=== PATIENT | male | born 1955 | race Caucasian/White ===

== ENCOUNTER → 2018-07-23 | Outpatient (CLI) | payer OTHER ==
[2018-07-23] VITALS (8 sets, daily range): BP systolic 130–147; BP diastolic 57–82
[~2018-07-23] VITALS: Ht 180.3 cm; Wt 99.8 kg
[~2018-07-23] MED LIST: ALLOPURINOL 30300 M2 PO; ASPIRIN325 PO; CENTRUM SILVER1 EAC2 PO; COLACE100 MG PO; FISH OIL 1,001000 M2 PO; FOLIC ACID1 MG PO; OXYCODONE HCL 55 MG PO; VITAMIN B-12500 MCG PO; VITAMIN D1000 UNI1 PO; XARELTO10 MG PO
[2018-07-23 10:11] LABS: HEMATOCRIT 39.3 % (42.0-52.0); HEMOGLOBIN 13.4 gm/dL (14.0-18.0); MCH 35.3 pg (26.0-34.0); MCHC 34.2 g/dL (28.0-37.0); MCV 103.1 fL (80.0-100.0); MPV 6.2 fl. (7.2-11.1); NUCLEATED RBCS 0 /100WBC; PLATELET COUNT* 123 thou/uL (150-400); RBC 3.81 mil/uL (4.50-6.00); RDW-CV 15.2 % (10.5-14.5)
[2018-07-23 10:22] LABS: CALCIUM 8.3 mg/dL (8.5-10.1); POTASSIUM 4.1 mmol/L (3.5-5.1)
[2018-07-23 10:24] LABS: WBC 1.6 thou/uL (4.0-11.0)
[2018-07-23 10:26] LABS: APTT 26.4 Seconds (25.0-31.3); INR 1.1; PROTIME 10.6 Seconds (9.20-11.50)
[2018-07-23 10:27] LABS: ALBUMIN 3.8 g/dL (3.4-5.0); TOTAL BILIRUBIN 0.8 mg/dL (<0.1-1.0)
[2018-07-23 10:47] LABS: ABSOLUTE LYMPHOCYTES 0.5 thou/uL (0.8-5.3); ABSOLUTE MONOCYTES 0.1 thou/uL (0.0-1.2); PLATELET ESTIMATE DECREASED
[2018-07-23 10:48] LABS: ANISOCYTOSIS 1+; POIKILOCYTOSIS 1+
--- NOTE | 2018-08-16 14:07 | PATH ---
[address] [place] [address] PATHOLOGY RPT PROCEDURE Name: DENI ANTONY Daljit [facility] [id number] Admission: 07/23/18 Date of : 51 Discharge: Report #: [id number] Path Case #: [id number] [facility] Accession Number: [id number] . 01 Material submitted: . PART A: BONE MARROW BIOPSY PART B: BONE MARROW CLOT PART C: BONE MARROW ASPIRATE SLIDES PART D: PERIPHERAL SMEARS . 01 Clinician provided ICD-10: 288.50 . 01 Clinical history: . 62 year old man with leukopenia, thrombocytopenia and a past medical history of hairy cell leukemia. . 02 Diagnosis: Bone marrow aspirate, biopsy, cell clot and peripheral blood: - Peripheral blood with moderate leukopenia and mild thrombocytopenia. - MILDLY HYPERCELLULAR BONE MARROW WITH TRILINEAGE HEMATOPOIESIS, ERYTHROID HYPERPLASIA AND INVOLVEMENT BY HAIRY CELL LEUKEMIA, RESIDUAL/RECURRENT (APPROXIMATELY 50-60% INVOLVEMENT BY IMMUNOHISTOCHEMICAL STAINING). - See comment. LBQ/07/26/2018 . 02 Comment: Overall, the bone marrow is mildly hypercellular for the patient's age with trilineage hematopoiesis, erythroid hyperplasia and involvement by the patient's previously diagnosed hairy cell leukemia ([id number]). There is approximately 50-60% involvement by immunohistochemical staining. Correlation with clinical history, additional laboratory data and cytogenetics is recommended. (CLW/db; 07/25/2018) . 02 Electronically signed: . Lexie Barlow MD, Pathologist NPI- [id number] . 01 Gross description: . A. Received in formalin labeled "Deni Antony, core," are 2 needle cores of kendrick bone measuring 0.4 and 0.6 cm in length and measuring 0.2 cm each in diameter. The specimen is submitted entirely in cassette A1, following decalcification. . B. Received in formalin labeled "Deni Antony, clot," is an aggregate of dark kendrick blood clot measuring 2.5 x 2.0 x 0.3 [place] [address] PATHOLOGY RPT PROCEDURE Name: DENI ANTONY [facility] [id number] Admission: 07/23/18 Date of : 51 Discharge: Report #: [id number] Path Case #: [id number] dimensions. The specimen is filtered and entirely submitted in cassette B1. (TSD; 07/23/2018) TOB/TOB . 02 Microscopic: . CBC Data (07/23/18): WBC 1,600 /uL, RBC 3.81, hemoglobin 13.4 g/dL, hematocrit 39.3%, MCV 103.1 fL, MCH 35.3 pg, MCHC 34.2 g/dL, RDW 15.2%, and platelet count 123,000 per uL. Manual white blood cell differential: segs 64%, lymphs 30%, monos 4%, and eos 2%. . Peripheral Blood Smear: Cytomorphological examination of the Justin's stained peripheral blood smear confirms the provided data. Red blood cells are macrocytic and are without significant anisopoikilocytosis. White blood cells are mildly decreased in number. They are predominantly segmented neutrophils and are without significant dyspoiesis or significant left shift. Lymphocytes are predominantly small, round, and mature appearing with condensed chromatin and scant cytoplasm with admixed large granular lymphocytes. On scanning, no markedly atypical lymphoid cells are seen. Monocytes are mature. Platelets are mildly decreased in number and mainly normal in morphology with rare larger platelets noted. . Aspirate Smears: Cytomorphological examination of the Justin's stained aspirate smears show no intact spicules present. It is predominantly blood and peripheral blood elements. . Cytomorphological examination of the Justin's stained touch imprints show hematopoietic progenitor cells present. The myeloid to erythroid ratio is 1:1. Full myeloid maturation is identified and is without significant dyspoiesis. Erythroid maturation is mildly dyserythropoietic with irregular nuclear contours and mitotic figures. In a 500 cell differential, there are less than 1% blasts (no Arnaud rods are seen), 41% more differentiated myeloids, 42% erythroid precursors, 17% lymphocytes and less than 1% plasma cells. Megakaryocytes are proportional in number and both normal and abnormal in morphology with variable sizes and nuclear abnormalities. No lymphoid aggregates are identified. Lymphocytes are both small, round and mature appearing with condensed chromatin and scant cytoplasm with admixed larger lymphoid cells. Plasma cells are without atypia. Iron stain of the aspirate smear shows 0/4+ iron positivity. It is predominantly blood and peripheral blood elements. No ringed sideroblasts are identified. . Core Biopsy and Cell Clot: The decalcified bone marrow core biopsy is adequate. The bone marrow is mildly hypercellular with an overall cellularity of approximately 60%. The myeloid to erythroid ratio is 1:1. Myeloid maturation is without significant dyspoiesis. Erythroid maturation is mildly [place] [address] PATHOLOGY RPT PROCEDURE Name: DENI ANTONY [facility] [id number] Admission: 07/23/18 Date of : 51 Discharge: Report #: [id number] Path Case #: [id number] Megakaryocytes are normal in number and both normal and abnormal in morphology. No well-formed lymphoid aggregates are identified. There is a moderate increase in scattered interstitial small to medium sized lymphocytes. Bony trabeculae and blood vessels are unremarkable. The cell clot has rare spicules present that are similar in cellularity and differential morphology as previously described. . Properly controlled special stains are performed. . Block A1 Iron - 3/4+ iron positivity Reticulin - 2-3/4+ reticulin fibrosis . Block B1 Iron - 3/4+ iron positivity . To further evaluate and quantify the neoplastic B cell population and to identify cells in a tissue architectural context, properly controlled immunohistochemical stains are performed. . Block A1 PAX5 - Highlights approximately 50-60% scattered neoplastic B cells CD79a - Highlights 50-60% scattered neoplastic B cells CD3 - Highlights admixed T cells Annexin A1 - B cell co-expression . Block B1 PAX5 - Stains approximately 40-50% scattered neoplastic B cells CD79a - Stains approximately 50% scattered neoplastic B cells CD3 - Highlights admixed T cells Annexin A1 - B cell co-exression . Flow Cytometry: Flow cytometric immunophenotypic analysis was performed at [facility]. The diagnosis is "minute population of monoclonal CD103 pos/CD25 pos/CD11c pos B cells, consistent with low level residual hairy cell leukemia." There are 12.9% lymphocytes. Of the lymphocytes, there are 71% T-cells with a CD4/CD8 ratio of 3.3 and no aberrant T-cell antigen expression. There are 14% mature B-cells that include a subset (approximately 30% of B cells) that are monoclonal with lambda light chain restriction. They are positive for CD11c, CD25, CD103 and negative for CD5, CD10 and CD23. The remaining B cells are polyclonal. No CD34 positive cells are detected. The flow cytometry shows a B cell subset (approximately 30% of the B cells and approximately 0.5% of the total events) that are monoclonal with lambda light chain restriction and express CD11c, CD25, and CD103. Please see separate flow cytometry report from [facility] ([id number]). . Cytogenetics: [place] [address] PATHOLOGY RPT PROCEDURE Name: DENI ANTONY Room: [facility] Blas#: [id number] Admission: 07/23/18 Date of : 51 Discharge: Report #: [id number] Path Case #: [id number] Cytogenetic chromosomal analysis is pending at [facility] ([id number]). . 02 Pathologist provided ICD-10: C91.40, D72.819, D69.6 . 02 CPT . 730921, 289840, 037406, 933979, 093561, 919513, 664408, 443872, 401148, [id number], [id number] Specimen Comment: A courtesy copy of this report has been sent to Specimen Comment: [phone], , , . Specimen Comment: [id number] Performed at: [facility] [address] [id number] MD David Tom MD Phone: [phone] Performed at: 02 [facility] [address] [id number] MD Tano Casey MD Phone: [phone]
== END | disposition home or self-care (01) ==
LOC: M.INT 09:27
PROVIDERS: Radiology Diagnostic Radiology
DX: C91.40 Hairy cell leukemia not having achieved remission (principal); D69.6 Thrombocytopenia, unspecified; D75.89 Other specified diseases of blood and blood-forming organs; Z85.828 Personal history of other malignant neoplasm of skin; Z98.890 Other specified postprocedural states; Z87.19 Personal history of other diseases of the digestive system; Z96.643 Presence of artificial hip joint, bilateral; Z88.8 Allergy status to other drugs, medicaments and biological substances; Z79.82 Long term (current) use of aspirin; Z79.899 Other long term (current) drug therapy; Z80.1 Family history of malignant neoplasm of trachea, bronchus and lung; Z79.01 Long term (current) use of anticoagulants

== ENCOUNTER → 2019-03-24 | Outpatient (CLI) | payer MEDICARE, OTHER | LOC: M.LAB 06:30 → M.MRI 07:30 | PROVIDERS: Internal Medicine | DX: I67.82 Cerebral ischemia (principal); E23.6 Other disorders of pituitary gland; C91.40 Hairy cell leukemia not having achieved remission; M24.80 Other specific joint derangements of unspecified joint, not elsewhere classified; M47.812 Spondylosis without myelopathy or radiculopathy, cervical region ==

== ENCOUNTER → 2020-01-09 | Outpatient (CLI) | payer MEDICARE, OTHER | LOC: M.MRI 14:14 | DX: M22.42 Chondromalacia patellae, left knee (principal); M17.32 Unilateral post-traumatic osteoarthritis, left knee; E23.6 Other disorders of pituitary gland; D35.2 Benign neoplasm of pituitary gland; C91.40 Hairy cell leukemia not having achieved remission; M25.462 Effusion, left knee ==

== ENCOUNTER → 2020-02-05 | Outpatient (CLI) | payer MEDICARE, OTHER | LOC: M.MRI 09:13 | DX: M25.462 Effusion, left knee (principal); M22.42 Chondromalacia patellae, left knee ==